=== PATIENT | female | born 1990 | race African-American/Black ===

== ENCOUNTER 2018-12-19 11:02 | Emergency (ER) | payer SELFPAY ==
[~2018-12-19] VITALS: Ht 165.1 cm; Wt 90.0 kg
[2018-12-19] MEDS ORDERED: PROAIR HFA108 MCG/AC IN (11:16)
[2018-12-19] MEDS ORDERED: CLEOCIN300 MG PO (11:27)
[2018-12-19] MEDS ORDERED: TORADOL PO (11:27)
[2018-12-19] MEDS ORDERED: AUGMENTIN875TAB PO (11:27)
[2018-12-19 11:37] VITALS: BP 113/76
== END 2018-12-19 11:38 | disposition home or self-care (01) | DRG 761 ==
LOC: ED 11:02
DX: N75.0 Cyst of Bartholin's gland (principal)

== ENCOUNTER 2019-09-23 18:42 | Emergency (ER) | payer OTHER ==
[~2019-09-23] VITALS: Ht 165.1 cm; Wt 91.0 kg
[~2019-09-23 18:42] MED LIST: AUGMENTIN875TAB PO; CLEOCIN300 MG PO; PROAIR HFA108 MCG/AC IN; TORADOL PO
[2019-09-23] MEDS ORDERED: FLEXERIL5 M1 PO (19:33)
[2019-09-23] MEDS ORDERED: MEDDOSEPAK PO (19:33)
[2019-09-23 20:00] VITALS: BP 101/66
== END 2019-09-23 20:00 | disposition home or self-care (01) ==
LOC: ED 18:42
DX: S39.012A Strain of muscle, fascia and tendon of lower back, initial encounter (principal); X50.3XXA Overexertion from repetitive movements, initial encounter; Y93.89 Activity, other specified; Y92.89 Other specified places as the place of occurrence of the external cause; Y99.0 Civilian activity done for income or pay

== ENCOUNTER 2019-12-14 | Emergency (ER) | payer MEDICAID ==
[~2019-12-14] MED LIST changes: +FLEXERIL5 M1 PO; +MEDDOSEPAK PO
[2019-12-14 15:23] LABS: HEMATOCRIT 35.4 % (37.0-47.0); HEMOGLOBIN 11.6 g/dl (12.0-16.0); IMMATURE GRANULOCYTES 0.5 % (0.0-5.0); MEAN CELL VOLUME 88.1 fL CALC (80.0-100.0); MEAN CORPUSCULAR HGB 28.9 pG CALC (26.0-32.0); MEAN CORPUSCULAR HGB CONC 32.8 g/L CALC (32.0-36.0); NEUT# 5.47 thou/uL (2.00-7.15); RED BLOOD COUNT 4.02 mill/uL (4.20-5.60)
[2019-12-14 15:45] LABS: ALBUMIN 3.7 g/dL (3.2-5.0); ALKALINE PHOSPHATASE 65 u/l (38-126); ANION GAP 12 (6-22 (CALC)); BILIRUBIN, TOTAL 0.4 mg/dL (0.0-1.4); BUN 9 mg/dL (7-17); BUN/CREATININE RATIO 21 (12-20 (CALC)); CARBON DIOXIDE 24 mmol/l (22-30); CHLORIDE 106 mmol/l (95-108); CREATININE 0.5 mg/dL (0.5-1.0); GFR > 60 ML/MIN (>=60 (CALC)); GFR FOR AFR.AMER. > 60 ML/MIN (>=60 (CALC)); POTASSIUM 3.9 mmol/l (3.5-5.1); SGOT/AST 24 u/l (14-36); SODIUM 138 mmol/l (137-146); TOTAL PROTEIN 7.9 g/dL (6.3-8.2)
[2019-12-14] MEDS ORDERED: KEFLEX500 M1 PO (16:57)
== END 2019-12-14 17:41 | disposition home or self-care (01) | DRG 816 ==
DX: R59.0 Localized enlarged lymph nodes (principal)
CPT/HCPCS: Q9967

== ENCOUNTER 2019-12-19 | Emergency (ER) | payer MEDICAID ==
[~2019-12-19] MED LIST changes: +KEFLEX500 M1 PO
[2019-12-19 19:30] LABS: HEMATOCRIT 36.7 % (37.0-47.0); HEMOGLOBIN 11.9 g/dl (12.0-16.0); IMMATURE GRANULOCYTES 0.3 % (0.0-5.0); MEAN CELL VOLUME 89.3 fL CALC (80.0-100.0); MEAN CORPUSCULAR HGB CONC 32.4 g/L CALC (32.0-36.0); NEUT# 6.54 thou/uL (2.00-7.15); RED BLOOD COUNT 4.11 mill/uL (4.20-5.60)
[2019-12-19 19:41] LABS: ALBUMIN 4.1 g/dL (3.2-5.0); ALKALINE PHOSPHATASE 87 u/l (38-126); ANION GAP 13 (6-22 (CALC)); BILIRUBIN, TOTAL 0.4 mg/dL (0.0-1.4); BUN 6 mg/dL (7-17); BUN/CREATININE RATIO 14 (12-20 (CALC)); CARBON DIOXIDE 25 mmol/l (22-30); CHLORIDE 105 mmol/l (95-108); CREATININE 0.4 mg/dL (0.5-1.0); GFR > 60 ML/MIN (>=60 (CALC)); GFR FOR AFR.AMER. > 60 ML/MIN (>=60 (CALC)); LIPASE 60 u/l (23-300); POTASSIUM 3.7 mmol/l (3.5-5.1); SGOT/AST 39 u/l (14-36); SODIUM 139 mmol/l (137-146); TOTAL PROTEIN 9.1 g/dL (6.3-8.2)
[2019-12-19 22:36] LABS: URINE BILIRUBIN - DIPSTICK NEGATIVE (NEGATIVE); URINE BLOOD DIPSTICK MODERATE (NEGATIVE); URINE COLOR YELLOW; URINE GLUCOSE - DIPSTICK NEGATIVE (NEGATIVE); URINE KETONE NEGATIVE (NEGATIVE); URINE LEUK ESTERASE NEGATIVE (NEGATIVE); URINE NITRITE - DIPSTICK NEGATIVE (Negative); URINE PH 6.5 (4.5-8.0); URINE PROTEIN - DIPSTICK NEGATIVE (NEG-TRACE); URINE SPECIFIC GRAVITY <=1.005
[2019-12-19 22:38] LABS: URINE SQUAMOUS EPITHELIAL CELL FEW EPI/hpf (0-FEW)
== END 2019-12-20 00:59 | disposition home or self-care (01) | DRG 392 ==
DX: R10.9 Unspecified abdominal pain (principal)

== ENCOUNTER 2020-02-11 | Emergency (ER) | payer MEDICAID ==
[2020-02-11] MEDS ORDERED: ALBUTEROL SUL0.083 % IN (07:00)
[2020-02-11 07:21] LABS: HCG SERUM/URINE (NEG/POS) NEGATIVE (NEGATIVE)
[2020-02-11] MEDS ORDERED: MEDDOSEPAK PO (07:48)
[2020-02-11] MEDS ORDERED: CEPHALEXIN500 MG PO (07:48)
== END 2020-02-11 08:01 | disposition home or self-care (01) | DRG 203 ==
PROVIDERS: Emergency Medicine
DX: J45.901 Unspecified asthma with (acute) exacerbation (principal)